=== PATIENT | male | born 1950 | race Caucasian/White ===

== ENCOUNTER 2018-04-26 08:01 | Day surgery (SDC) | payer MEDICARE, BC ==
[~2018-04-26] VITALS: Ht 182.9 cm; Wt 64.4 kg
[~2018-04-26 08:01] MED LIST: ASPI81CH; ATOR10; DICLOFENAC SOD100 GM; Daily Multiple1 EACH; LATA.005SO; LOSARTAN POTAS100 MG; Prinivil10 MG
[2018-04-26] MEDS ORDERED: Magnesium500 MG PO (08:37)
== END 2018-04-26 09:52 | disposition home or self-care (01) ==
LOC: ORSCSDS 08:01
PROVIDERS: Surgery
PROC: 0DBM8ZX Excision of Descending Colon, Via Natural or Artificial Opening Endoscopic, Diagnostic (ICD-10-PCS; principal; 2018-04-26 09:15)
DX: Z12.11 Encounter for screening for malignant neoplasm of colon (principal); D12.4 Benign neoplasm of descending colon; K57.30 Diverticulosis of large intestine without perforation or abscess without bleeding; I10 Essential (primary) hypertension; Z87.891 Personal history of nicotine dependence; Z79.899 Other long term (current) drug therapy
CPT/HCPCS: 88305; J7120

== ENCOUNTER → 2018-06-07 | Outpatient (CLI) | payer MEDICARE, BC ==
[~2018-06-07] MED LIST changes: +Magnesium500 MG PO
== END | disposition home or self-care (01) ==
LOC: PLD 10:12 → LAB SHORT 10:12
DX: L57.0 Actinic keratosis (principal)
CPT/HCPCS: 88305

== ENCOUNTER → 2020-01-02 | Outpatient (CLI) | payer MEDICARE, BC | END | disposition home or self-care (01) | LOC: PLD 08:57 → LAB SHORT 08:57 | DX: L57.0 Actinic keratosis (principal) | CPT/HCPCS: 88305 ==

== ENCOUNTER 2022-01-04 18:40 | Emergency (ER) | payer MEDICARE, BC ==
[~2022-01-04] VITALS: Ht 182.9 cm; Wt 68.0 kg
[2022-01-04] MEDS ORDERED: OLMESARTAN MEDO40 MG PO (19:06)
[2022-01-04 19:31] LABS: Albumin/Globulin Ratio 1.3 (0.8-1.8); Bilirubin, Total 0.2 mg/dL (0.1-1.0); Bun/Creatinine Ratio 20.2 (12.0-20.0); Calcium, Blood 7.2 mg/dL (8.5-10.1); Creatinine, Blood 0.79 mg/dL (0.60-1.20); Globulin, Blood 2.3 g/dL (2.2-4.0); Potassium, Blood 3.1 mmol/L (3.5-5.5); Total Protein, Blood 5.3 g/dL (6.4-8.2)
[2022-01-04 19:36] LABS: BASOPHILS ABSOLUTE AUTO 0.06 K/mm3 (0.00-0.23); BASOPHILS PERCENT AUTO 1 % (0-2); EOSINOPHILS ABSOLUTE AUTO 0.24 K/mm3 (0.00-0.68); EOSINOPHILS PERCENT AUTO 2 % (0-6); Hematocrit 29.9 % (37.0-53.0); Hemoglobin 10.2 g/dL (13.5-17.5); IMMATURE GRAN ABSOLUTE AUTO 0.08 K/mm3 (0.00-0.10); IMMATURE GRAN PERCENT AUTO 1 % (0-1); LYMPHOCYTES ABSOLUTE AUTO 2.01 K/mm3 (0.84-5.20); LYMPHOCYTES PERCENT AUTO 21 % (21-46); MONOCYTES ABSOLUTE AUTO 0.74 K/mm3 (0.16-1.47); MONOCYTES PERCENT AUTO 8 % (4-13); Mean Corpuscular HGB 30.5 pg (26.0-34.0); Mean Corpuscular HGB Conc 34.1 g/dL (31.5-36.5); Mean Corpuscular Volume 90 fL (80-100); NEUTROPHILS ABSOLUTE AUTO 6.67 K/mm3 (1.96-9.15); NEUTROPHILS PERCENT AUTO 68 % (41-73); RDW Coefficient Variation 12.7 % (11.7-14.2); RDW Standard Deviation 41.5 fL (35.1-46.3); Red Blood Cell Count 3.34 M/mm3 (4.30-5.90)
[2022-01-04 19:54] LABS: Mean Platelet Volume 10.3 fL (9.1-12.4); Platelet Count 170 K/mm3 (150-400)
[2022-01-04 20:46] LABS: Magnesium, Blood 1.5 mg/dL (1.6-2.4)
[2022-01-05] MEDS ORDERED: SILDENAFIL CITR20 M1 PO (11:50)
[2022-01-05] MEDS ORDERED: LATANOPROST2.5 M3 (11:50)
[2022-01-05] MEDS ORDERED: Prednisone20 MG PO (13:51)
[2022-01-05] MEDS ORDERED: ONDA4ODT MM (13:55)
== END 2022-01-05 00:07 | disposition home or self-care (01) ==
LOC: ER 18:40
PROVIDERS: Student in an Organized Health Care Education/Training Program
DX: R55 Syncope and collapse (principal); S01.01XA Laceration without foreign body of scalp, initial encounter; I10 Essential (primary) hypertension; Z79.899 Other long term (current) drug therapy; Z79.82 Long term (current) use of aspirin; Z87.891 Personal history of nicotine dependence; W22.8XXA Striking against or struck by other objects, initial encounter; Y93.E1 Activity, personal bathing and showering
CPT/HCPCS: 70450; 80053; 83735; 84484; 85025; 93005; 93010; 96365; 96366; 96375; 99284-25; A9270; J3475; J7030

== ENCOUNTER 2022-01-05 10:24 | Emergency (ER) | payer MEDICARE, BC ==
[~2022-01-05] VITALS: Ht 182.9 cm; Wt 68.0 kg
[~2022-01-05 10:24] MED LIST changes: +OLMESARTAN MEDO40 MG PO
[2022-01-05] MEDS ORDERED: LATANOPROST2.5 M3 (11:50)
[2022-01-05] MEDS ORDERED: SILDENAFIL CITR20 M1 PO (11:50)
[2022-01-05] MEDS ORDERED: Prednisone20 MG PO (13:51)
[2022-01-05] MEDS ORDERED: ONDA4ODT MM (13:55)
== END 2022-01-05 14:22 | disposition home or self-care (01) ==
LOC: ER 10:24
DX: S02.119A Unspecified fracture of occiput, initial encounter for closed fracture (principal); H91.92 Unspecified hearing loss, left ear; X58.XXXA Exposure to other specified factors, initial encounter; I10 Essential (primary) hypertension; Z79.82 Long term (current) use of aspirin; Z79.899 Other long term (current) drug therapy; Z87.891 Personal history of nicotine dependence
CPT/HCPCS: 70450; 70480; 99282-25; A9270

== ENCOUNTER → 2022-01-22 | Outpatient (CLI) | payer MEDICARE, BC ==
[~2022-01-22] MED LIST changes: +LATANOPROST2.5 M3; +ONDA4ODT MM; +Prednisone20 MG PO; +SILDENAFIL CITR20 M1 PO
== END ==
LOC: LAB 12:00 → LAB SHORT 12:00
DX: R35.1 Nocturia (principal)
CPT/HCPCS: 87077; 87086; 87186